=== PATIENT | male | born 1980 | race African-American/Black ===

== ENCOUNTER 2016-10-21 15:06 | Emergency (ER) | payer MEDICAID ==
[~2016-10-21] VITALS: Ht 180.3 cm; Wt 100.0 kg
[~2016-10-21 15:06] MED LIST: TRAM50TA73 PO
[2016-10-21] MEDS ORDERED: KETOROLAC 60MG/2ML VIAL IM ONE (22:30)
[2016-10-21 23:13] VITALS: BP 141/98
== END 2016-10-21 23:16 | disposition home or self-care (01) ==
LOC: ER 21:13
DX: M10.9 Gout, unspecified (principal); I10 Essential (primary) hypertension; F17.200 Nicotine dependence, unspecified, uncomplicated; F12.10 Cannabis abuse, uncomplicated
CPT/HCPCS: 96372; 99283; J1885; Z7610

== ENCOUNTER 2018-05-27 18:49 | Inpatient (IN) | payer MEDICAID ==
[~2018-05-27] VITALS: Ht 180.3 cm; Wt 104.3 kg
[~2018-05-27 18:49] MED LIST changes: -TRAM50TA73 PO; +TRAM50TA94 PO
[2018-05-28] MEDS ORDERED: PIPERACILLIN/TAZ 3.375G PREMIX 50 ML IV ONE (00:30)
[2018-05-28] MEDS ORDERED: SODIUM CHLORIDE 0.9% 1000ML BAG (SEPSIS BOLUS) IV ONE (00:30)
[2018-05-28] MEDS ORDERED: VANCOMYCIN 1 G PREMIX 200 ML IV ONE (00:30)
[2018-05-28] MEDS ORDERED: HYDROCODONE/ACETAMINOPHEN 5/325MG TABLET PO ONE (00:45)
[2018-05-28 01:24] LABS: BASOPHILS % 0.7 % (0.0-2.0); EOSINOPHILS % 1.9 % (0.0-5.0); HEMATOCRIT. 44.2 % (42.0-52.0); HEMOGLOBIN. 14.6 g/dL (14.0-18.0); MEAN CORPUSCULAR HEMOGLOBIN 26.7 pg (28.0-32.0); MEAN CORPUSCULAR VOLUME 80.5 fL (80.0-94.0); MONOCYTES % 5.2 % (2.0-8.0); NEUTROPHILS % 63.2 % (40.0-76.0); PLATELET 265 x1000/uL (130-400); RED BLOOD CELL COUNT 5.49 mill/uL (4.7-6.1); RED CELL DISTRIBUTION WIDTH 16.8 % (11.6-14.6)
[2018-05-28 01:30] LABS: CHLORIDE 111 mEq/L (98-107)
[2018-05-28 01:31] LABS: INR 1.1; PARTIAL THROMBOPLASTIN TIME 25.4 sec (23.4-31.0); PROTHROMBIN TIME 10.7 sec (9.1-11.1)
[2018-05-28 01:34] LABS: ETHANOL BLOOD < 10 mg/dL
[2018-05-28 06:19] LABS: CLARITY URINE CLEAR (CLEAR); COLOR URINE YELLOW (YELLOW); KETONES URINE NEGATIVE (NEGATIVE); LEUKOCYTE ESTERASE URINE NEGATIVE (NEGATIVE); NITRITE URINE NEGATIVE (NEGATIVE); OCCULT BLOOD URINE NEGATIVE (NEGATIVE); PH URINE 5.5 (4.5-8.0); PROTEIN URINE TRACE (NEGATIVE); SPECIFIC GRAVITY URINE 1.016 (1.005-1.030); UROBILINOGEN URINE 0.2 E.U./dL (0.2-1.0)
[2018-05-28 06:57] VITALS: BP 159/97
[2018-05-28 06:58] LABS: *BARBITURATES SCREEN URINE NEGATIVE (NEGATIVE); CANNABINOID URINE SCREEN PRESUMTIVE POSITIVE (NEGATIVE)
[2018-05-28 06:59] LABS: *AMPHETAMINES SCREEN URINE NEGATIVE (NEGATIVE); *BENZODIAZEPINES SCREEN URINE NEGATIVE (NEGATIVE); *COCAINE SCREEN URINE NEGATIVE (NEGATIVE); METHADONE URINE SCREEN NEGATIVE (NEGATIVE); OPIATES URINE SCREEN PRESUMTIVE POSITIVE (NEGATIVE); PHENCYCLIDINE URINE SCREEN NEGATIVE (NEGATIVE)
[2018-05-28 08:00] VITALS: BP 151/92
[2018-05-28 11:50] VITALS: BP 148/60
[2018-05-28 12:00] VITALS: BP 173/98
[2018-05-28] MEDS ORDERED: DOCUSATE SODIUM 100MG CAPSULE PO PRN (13:00)
[2018-05-28] MEDS ORDERED: HYDROCODONE/ACETAMINOPHEN 5/325MG TABLET PO PRN (13:00)
[2018-05-28] MEDS ORDERED: LORAZEPAM 0.5MG TABLET PO PRN (13:00)
[2018-05-28] MEDS ORDERED: ACETAMINOPHEN 325MG TABLET PO PRN (13:00)
[2018-05-28] MEDS ORDERED: IPRATROPIUM/ALBUTEROL 0.5-3(2.5)MG/3ML NEB INH PRN (13:00)
[2018-05-28] MEDS ORDERED: ONDANSETRON HCL 4MG/2ML INJ IV PRN (13:00)
[2018-05-28 16:00] VITALS: BP 177/103
[2018-05-28 20:00] VITALS: BP 175/95
[2018-05-28] MEDS: CLONIDINE 0.1MG TABLET PO PRN (21:47)
[2018-05-29] VITALS: BP 117/78
[2018-05-29 04:00] VITALS: BP 139/91
[2018-05-29 06:46] LABS: BASOPHILS % 0.7 % (0.0-2.0); EOSINOPHILS % 3.5 % (0.0-5.0); HEMATOCRIT. 43.3 % (42.0-52.0); HEMOGLOBIN. 14.1 g/dL (14.0-18.0); LYMPHOCYTES % 33.6 % (20.0-50.0); MEAN CORPUSCULAR HEMOGLOBIN 26.7 pg (28.0-32.0); MEAN PLATELET VOLUME 8.4 fl (7.4-10.4); MONOCYTES % 5.2 % (2.0-8.0); PLATELET 245 x1000/uL (130-400); RED BLOOD CELL COUNT 5.28 mill/uL (4.7-6.1)
[2018-05-29 06:59] LABS: CHLORIDE 109 mEq/L (98-107)
[2018-05-29 08:00] VITALS: BP 141/65
[2018-05-29 12:00] VITALS: BP 159/87
[2018-05-29 20:00] VITALS: BP 156/82
[2018-05-30] VITALS: BP 148/89
[2018-05-30 04:00] VITALS: BP 154/84
[2018-05-30 08:00] VITALS: BP 160/91
[2018-05-30] MEDS: CLONIDINE 0.1MG TABLET PO PRN (10:53)
[2018-05-30 11:51] VITALS: BP 153/92
== END 2018-05-30 14:07 | disposition home or self-care (01) | DRG 364 ==
LOC: ER 18:49 → 7WST 05-28 01:28 → EDBEDREQ 05-28 01:32 → EDBEDREQTM 05-28 01:32 → ENRESERV 05-28 05:25
PROVIDERS: ADMIT Internal Medicine; ATTEND Internal Medicine
PROC: 0KBS0ZZ Excision of Right Lower Leg Muscle, Open Approach (ICD-10-PCS; principal; 2018-05-28)
DX: L97.919 Non-pressure chronic ulcer of unspecified part of right lower leg with unspecified severity (principal); E66.01 Morbid (severe) obesity due to excess calories; R65.10 Systemic inflammatory response syndrome (SIRS) of non-infectious origin without acute organ dysfunction; I10 Essential (primary) hypertension; L97.929 Non-pressure chronic ulcer of unspecified part of left lower leg with unspecified severity; L57.0 Actinic keratosis; F17.210 Nicotine dependence, cigarettes, uncomplicated; F12.10 Cannabis abuse, uncomplicated; H54.7 Unspecified visual loss; M10.9 Gout, unspecified; S80.861A Insect bite (nonvenomous), right lower leg, initial encounter; W57.XXXA Bitten or stung by nonvenomous insect and other nonvenomous arthropods, initial encounter; Y93.89 Activity, other specified; Y92.89 Other specified places as the place of occurrence of the external cause; Y99.8 Other external cause status; Z59.0 Homelessness; Z68.32 Body mass index [BMI] 32.0-32.9, adult; Z71.6 Tobacco abuse counseling; Z71.3 Dietary counseling and surveillance
CPT/HCPCS: 36415; 71045; 73590; 80048; 80305; 80320; 83605; 83880; 84145; 84484; 87070; 87077; 93005; 93971; 96374; 99285; J2543; J3370; J7030; G0480

== ENCOUNTER 2018-09-17 21:00 | Emergency (ER) | payer MEDICAID ==
[~2018-09-17] VITALS: Ht 180.3 cm; Wt 102.0 kg
[2018-09-17 22:48] VITALS: BP 167/93
== END 2018-09-17 22:34 | disposition home or self-care (01) ==
LOC: ER 21:00
DX: S81.801S Unspecified open wound, right lower leg, sequela (principal); I10 Essential (primary) hypertension; F12.10 Cannabis abuse, uncomplicated; Z79.899 Other long term (current) drug therapy; X58.XXXS Exposure to other specified factors, sequela
CPT/HCPCS: 99283